=== PATIENT | male | born 1940 | race Caucasian/White ===

== ENCOUNTER 2017-06-13 09:37 | Emergency (ER) | payer MEDICARE, BC ==
--- NOTE | 2017-06-13 10:25 | EDM.PDOC ---
[id number] 4d LEFT ARM IS NUMB AND HEART HURTS Time Seen by Provider: 06/13/17 10:19 Source of Information: Reports: Patient History Limitations: Reports: No Limitations - History of Present Illness INITIAL COMMENTS - FREE TEXT/NARRATIVE: 76-year-old male with known coronary artery disease presents with 2-3 weeks of intermittent mild anterior chest discomfort with left arm numbness and posterior left shoulder discomfort. No shortness of breath, when he woke up this morning the numbness in his arm seemed a little worse so he came in. It now seems better. The chest pain last just a few minutes and is very localized to the left anterior chest. It seems to be better with activity, he mows the lawn and is very active and has no symptoms while active. Onset: Unknown/Unsure Location: Reports: Chest, Lower Extremity, Left, Other (Left posterior shoulder and upper back) Improves with: Reports: Movement Worsens with: Reports: Rest (Seems to be worse in the morning upon arising) Associated Symptoms: Reports: No Other Symptoms Left Chest Pain Score (Numeric/FACES): 5 - Related Data Allergies Allergy/AdvReac Type Severity Reaction Status Date / Time No Known Allergies Allergy Verified 06/13/17 09:57 Home Meds: Home Meds Aspirin 81 mg PO DAILY 10/21/16 [History] Lisinopril 5 mg PO DAILY 10/21/16 [History] Metoprolol Tartrate 25 mg PO BID 10/21/16 [History] Warfarin [Coumadin] 5 mg PO ASDIRECTED 10/21/16 [History] atorvaSTATin [Lipitor] 80 mg PO BEDTIME 10/21/16 [History] Past Medical History HEENT History: Reports: Impaired Vision Cardiovascular History: Reports: Afib, CAD, Stents Musculoskeletal History: Reports: Fracture Oncologic (Cancer) History: Reports: Other (See Below) Other Oncologic History: skin Dermatologic History: Reports: Melanoma - Infectious Disease History Infectious Disease History: Reports: Chicken Pox, Shingles - Past Surgical History Cardiovascular Surgical History: Reports: Carotid Stents, Percutaneous Transluminal Angioplasty Other Cardiovascular Surgeries/Procedures: 2008 GI Surgical History: Reports: Appendectomy Musculoskeletal Surgical History: Reports: Hip Replacement, Knee Replacement Other Musculoskeletal Surgeries/Procedures:: Knee right 2009. hip right 2013 Social & Family History - Family History Family Medical History: Noncontributory - Tobacco Use Smoking Status *Q: Never Smoker - Caffeine Use Caffeine Use: Reports: Coffee - Alcohol Use Days Per Week of Alcohol Use: 0 - Recreational Drug Use Recreational Drug Use: No ED ROS GENERAL - Review of Systems Review Of Systems: See Below Constitutional: Denies: Fever, Chills, Malaise HEENT: Reports: No Symptoms Respiratory: Denies: Shortness of Breath, Cough Cardiovascular: Reports: Chest Pain GI/Abdominal: Denies: Abdominal Pain, Nausea, Vomiting Musculoskeletal: Reports: Shoulder Pain, Back Pain Skin: Reports: Bruising Neurological: Reports: Other (Paresthesias and intermittent numbness in the left arm) ED EXAM, GENERAL - Physical Exam Exam: See Below Exam Limited By: No Limitations General Appearance: Alert, No Apparent Distress Head: Atraumatic Neck: Full Range of Motion Respiratory/Chest: No Respiratory Distress, Lungs Clear Cardiovascular: Irregularly Irregular GI/Abdominal: Non-Tender Extremities: Normal Inspection, Other (Left arm has no reproducible deficits of strength or sensation) Neurological: Alert, Oriented, No Motor/Sensory Deficits Psychiatric: Normal Affect, Normal Mood Skin Exam: Warm, Dry, Other (Patient does have scattered bruises of both arms in various stages of healing) EKG INTERPRETATION Rhythm: A-Fib Rate (Beats/Min): 78 ST-T: Normal Course - Vital Signs Last Recorded V/S: Last Vital Signs Temp 98.1 F 06/13/17 09:45 Pulse 68 06/13/17 10:47 Resp 16 06/13/17 10:47 BP 112/71 06/13/17 10:47 Pulse Ox 93 L 06/13/17 10:47 - Orders/Labs/Meds Orders: Active Orders 24 hr Category Date Time Status EKG Documentation Completion [RC] ASDIRECTED Care 06/13/17 10:26 Active EKG 12 Lead [EK] Routine Ther 06/13/17 10:26 Ordered Labs: Laboratory Tests 06/13/17 06/13/17 Range/Units 10:40 10:40 WBC 7.0 (4.5-11.0) K/uL RBC 4.18 L (4.30-5.90) M/uL Hgb 12.3 (12.0-15.0) g/dL Hct 36.6 L (40.0-54.0) % MCV 88 (80-98) fL MCH 29 (27-31) pg MCHC 34 (32-36) % Plt Count 210 (150-400) K/uL Neut % (Auto) 68 H (36-66) % Lymph % (Auto) 19 L (24-44) % [place] % (Auto) 9 H (2-6) % Eos % (Auto) 4 (2-4) % Baso % (Auto) 0 (0-1) % Sodium 136 L (140-148) mmol/L Potassium 4.2 (3.6-5.2) mmol/L Chloride 101 (100-108) mmol/L Carbon Dioxide 28 (21-32) mmol/L Anion Gap 11.2 (5.0-14.0) mmol/L BUN 21 H (7-18) mg/dL Creatinine 0.9 (0.8-1.3) mg/dL Est Cr Clr Drug Dosing 64.98 mL/min Estimated GFR (MDRD) > 60 (>60) Glucose 88 (74-106) mg/dL Calcium 8.6 D (8.5-10.1) mg/dL Troponin I < 0.017 (0.000-0.056) ng/mL - Re-Assessments/Exams Free Text/Narrative Re-Assessment/Exam: 06/13/17 10:29 An EKG that was done which was reassuring, he is in his chronic atrial fibrillation without any ST changes. A pro time was checked yesterday at 1.9 without changing his warfarin dose, this will not be repeated. A CBC, BMP and troponin and a two-view chest x-ray will be obtained for reassurance however this likely is musculoskeletal with some intermittent nerve irritation or impingement in the left neck and shoulder. 06/13/17 11:19 Chest x-ray and labs are reassuring, troponin was 0. Encouraged the patient to return anytime if worsening or concerns but no activity restrictions at this time. Departure - Departure Time of Disposition: 11:45 Disposition: Home, Self-Care 01 Condition: Good Clinical Impression: Paresthesia of left upper extremity, Chest pain, atypical - Discharge Information Instructions: Nonspecific Chest Pain Referrals: PCP,None [Primary Care Provider] - Forms: ED Department Discharge Care Plan Goals: Continue current medications, activity as tolerated and return anytime if worsening or concerns. - My Orders Last 24 Hours: My Active Orders 06/13/17 10:26 EKG Documentation Completion [RC] ASDIRECTED EKG 12 Lead [EK] Routine - Assessment/Plan Last 24 Hours: My Active Orders 06/13/17 10:26 EKG Documentation Completion [RC] ASDIRECTED EKG 12 Lead [EK] Routine
[2017-06-13 10:48] VITALS: BP 112/71
--- NOTE | 2017-06-13 11:08 | CR ---
Chest 2V HISTORY: Dyspnea. COMPARISON: 10/21/2016. FINDINGS: Moderate stable cardiomegaly. Mild interstitial prominence in the perihilar regions which may represent mild congestive change. No dense infiltrate or effusion seen.
== END 2017-06-13 11:50 | disposition home or self-care (01) ==
LOC: JP.ED 09:37
DX: R07.89 Other chest pain (principal); R20.9 Unspecified disturbances of skin sensation; I48.91 Unspecified atrial fibrillation; I25.10 Atherosclerotic heart disease of native coronary artery without angina pectoris; Z96.649 Presence of unspecified artificial hip joint; Z96.659 Presence of unspecified artificial knee joint; Z98.890 Other specified postprocedural states; Z79.82 Long term (current) use of aspirin; Z79.899 Other long term (current) drug therapy; Z96.651 Presence of right artificial knee joint; Z95.5 Presence of coronary angioplasty implant and graft; Z90.49 Acquired absence of other specified parts of digestive tract
CPT/HCPCS: 36415; 71020; 71020-26; 80048; 84484; 85025; 93005; 93010; 99283; 99284-25

== ENCOUNTER 2018-07-10 20:39 | Emergency (ER) | payer MEDICARE, BC ==
[2018-07-10 21:17] VITALS: BP 128/60
[2018-07-10] MEDS ORDERED: Bacitracin Oint 1 GM U/D Packet TOP ONE (21:20)
[2018-07-10] MEDS ORDERED: Diphtheria,Pertussis(Acell),Tetanus Vaccine 0.5 ML SDV IM ONE (21:20)
--- NOTE | 2018-07-10 21:25 | EDM.PDOC ---
ED HPI GENERAL MEDICAL PROBLEM - General Chief Complaint: Skin Complaint Stated Complaint: CUT ON LEFT ARM Time Seen by Provider: 07/10/18 21:21 Source of Information: Reports: Patient, RN History Limitations: Reports: Other (poor historian) - History of Present Illness INITIAL COMMENTS - FREE TEXT/NARRATIVE: 77 yo male here with a skin tear to his L forearm. Does not know about the timing of his last tetanus. Onset: Today Onset Date: 07/10/18 Onset Time: 20:00 Duration: Minutes:, Constant Location: Reports: Upper Extremity, Left Quality: Reports: Dull Severity: Mild Improves with: Reports: Other (time) Worsens with: Reports: None Context: Reports: Trauma Associated Symptoms: Reports: No Other Symptoms Treatments LATENT PRINT EXAMINER: Reports: Dressing(s) - Related Data Allergies Allergy/AdvReac Type Severity Reaction Status Date / Time No Known Allergies Allergy Verified 07/10/18 21:17 Home Meds: Home Meds Aspirin 81 mg PO DAILY 10/21/16 [History] Lisinopril 5 mg PO DAILY 10/21/16 [History] Metoprolol Tartrate 25 mg PO BID 10/21/16 [History] Warfarin [Coumadin] 5 mg PO ASDIRECTED 10/21/16 [History] atorvaSTATin [Lipitor] 80 mg PO BEDTIME 10/21/16 [History] Past Medical History HEENT History: Reports: Impaired Vision Cardiovascular History: Reports: Afib, CAD, Stents Musculoskeletal History: Reports: Fracture Oncologic (Cancer) History: Reports: Other (See Below) Other Oncologic History: skin Dermatologic History: Reports: Melanoma - Infectious Disease History Infectious Disease History: Reports: Chicken Pox, Shingles - Past Surgical History Cardiovascular Surgical History: Reports: Carotid Stents, Percutaneous Transluminal Angioplasty Other Cardiovascular Surgeries/Procedures: 2009 GI Surgical History: Reports: Appendectomy Musculoskeletal Surgical History: Reports: Hip Replacement, Knee Replacement Other Musculoskeletal Surgeries/Procedures:: Knee right 2009. hip right 2013 Social & Family History - Family History Family Medical History: Noncontributory - Caffeine Use Caffeine Use: Reports: Coffee ED ROS GENERAL - Review of Systems Review Of Systems: See Below Constitutional: Reports: No Symptoms Musculoskeletal: Reports: No Symptoms Skin: Reports: Wound (L forearm) Neurological: Reports: No Symptoms ED EXAM, SKIN/RASH Exam: See Below Exam Limited By: No Limitations General Appearance: Alert, WD/WN, No Apparent Distress Ears: Hearing Loss Neurological: Alert, Oriented, CN II-XII Intact, Normal Cognition, No Motor/ Sensory Deficits, Sensory/Motor Deficit Psychiatric: Normal Mood Skin: Warm, Dry, Normal Color, No Rash, Wound/Incision Location, Skin: Upper Extremity, Left Characteristics: Other (skin tear) Course - Vital Signs Text/Narrative:: Clean and dressed per nursing. Last Recorded V/S: Last Vital Signs Temp 36.4 C 07/10/18 21:15 Pulse 88 07/10/18 21:15 Resp 12 07/10/18 21:15 BP 128/60 07/10/18 21:15 Pulse Ox 98 07/10/18 21:15 - Orders/Labs/Meds Orders: Active Orders 24 hr Category Date Time Status Vaccines to be Administered [RC] PER UNIT ROUTINE Care 07/10/18 21:20 Ordered Bacitracin [Bacitracin Oint 1 GM] Med 07/10/18 21:20 Once 1 dose TOP ONETIME ONE Diphth,Pertuss(Acell),Tet Vac [Adacel] Med 07/10/18 21:20 Once 0.5 ml IM .ONCE ONE Departure - Departure Time of Disposition: 21:30 Disposition: Home, Self-Care 01 Condition: Good Clinical Impression: Skin tear of left forearm without complication Qualifiers: Encounter type: initial encounter Qualified Code(s): S51.812A - Laceration without foreign body of left forearm, initial encounter - Discharge Information *PRESCRIPTION DRUG MONITORING PROGRAM REVIEWED*: Not Applicable *COPY OF PRESCRIPTION DRUG MONITORING REPORT IN PATIENT VEDA: Not Applicable Instructions: Skin Tear Care, [id number] Referrals: Bret Morales MD [Primary Care Provider] - Additional Instructions: Starting tomorrow night clean wound twice daily with soap and water. Dry. Apply antibiotic ointment and a new dressing. Recheck for signs of infection. - My Orders Last 24 Hours: My Active Orders 07/10/18 21:20 Vaccines to be Administered [RC] PER UNIT ROUTINE Bacitracin [Bacitracin Oint 1 GM] 1 dose TOP ONETIME ONE Diphth,Pertuss(Acell),Tet Vac [Adacel] 0.5 ml IM .ONCE ONE - Assessment/Plan Last 24 Hours: My Active Orders 07/10/18 21:20 Vaccines to be Administered [RC] PER UNIT ROUTINE Bacitracin [Bacitracin Oint 1 GM] 1 dose TOP ONETIME ONE Diphth,Pertuss(Acell),Tet Vac [Adacel] 0.5 ml IM .ONCE ONE
== END 2018-07-10 21:35 | disposition home or self-care (01) ==
LOC: JP.ED 20:39
DX: S51.812A Laceration without foreign body of left forearm, initial encounter (principal); Z23 Encounter for immunization; Z79.82 Long term (current) use of aspirin; Z79.01 Long term (current) use of anticoagulants; Z79.899 Other long term (current) drug therapy; W45.8XXA Other foreign body or object entering through skin, initial encounter
CPT/HCPCS: 90471; 90715; 99283-25

== ENCOUNTER 2020-11-21 08:18 | Emergency (ER) | payer MEDICARE ==
[2020-11-21] MEDS ORDERED: Acetaminophen 325 MG Tab PO PRN (09:01)
--- NOTE | 2020-11-21 09:08 | EDM.PDOC ---
ED HPI GENERAL MEDICAL PROBLEM - General Chief Complaint: Gastrointestinal Problem Stated Complaint: NO APPETITE, SOB Time Seen by Provider: 11/21/20 08:54 Source of Information: Reports: Patient, RN Notes Reviewed History Limitations: Reports: No Limitations - History of Present Illness INITIAL COMMENTS - FREE TEXT/NARRATIVE: 80-year-old gentleman presents emergency department today with complaint of nausea poor oral intake for the last 4 days he has had a positive exposure to Covid his is currently hospitalized also on screening he was found to be hypotensive. - Related Data Allergies Allergy/AdvReac Type Severity Reaction Status Date / Time No Known Allergies Allergy Verified 07/22/19 08:58 Home Meds: Home Meds Aspirin 81 mg PO DAILY 10/21/16 [History] Lisinopril 5 mg PO DAILY 10/21/16 [History] Metoprolol Tartrate 25 mg PO BID 10/21/16 [History] atorvaSTATin [Lipitor] 80 mg PO BEDTIME 10/21/16 [History] Apixaban [Eliquis] 5 mg PO DAILY 07/22/19 [History] Nitroglycerin 0.4 mg PO ASDIRECTED PRN 11/21/20 [History] Past Medical History HEENT History: Reports: Impaired Vision Cardiovascular History: Reports: Afib, CAD, Stents Musculoskeletal History: Reports: Fracture Oncologic (Cancer) History: Reports: Other (See Below) Other Oncologic History: skin Dermatologic History: Reports: Melanoma - Infectious Disease History Infectious Disease History: Reports: Chicken Pox, Shingles - Past Surgical History Cardiovascular Surgical History: Reports: Carotid Stents, Percutaneous Transluminal Angioplasty Other Cardiovascular Surgeries/Procedures: 2008 GI Surgical History: Reports: Appendectomy Musculoskeletal Surgical History: Reports: Hip Replacement, Knee Replacement Other Musculoskeletal Surgeries/Procedures:: Knee right 2009. hip right 2013 Social & Family History - Family History Family Medical History: No Pertinent Family History - Tobacco Use Tobacco Use Status *Q: Never Tobacco User - Caffeine Use Caffeine Use: Reports: Coffee ED ROS GENERAL - Review of Systems Review Of Systems: See Below Constitutional: Reports: No Symptoms HEENT: Reports: No Symptoms Respiratory: Reports: No Symptoms Cardiovascular: Reports: Blood Pressure Problem GI/Abdominal: Reports: Nausea : Reports: No Symptoms ED EXAM, GENERAL - Physical Exam Exam: See Below Exam Limited By: No Limitations General Appearance: Alert, WD/WN, No Apparent Distress Respiratory/Chest: No Respiratory Distress, Lungs Clear, Normal Breath Sounds, No Accessory Muscle Use, Chest Non-Tender Cardiovascular: Regular Rate, Rhythm, No Murmur GI/Abdominal: Soft, Non-Tender Course - Vital Signs Last Recorded V/S: Last Vital Signs Temp 98 F 11/21/20 08:37 Pulse 88 11/21/20 08:45 Resp 16 11/21/20 08:45 BP 101/56 L 11/21/20 08:45 Pulse Ox 98 11/21/20 08:45 - Orders/Labs/Meds Orders: Active Orders 24 hr Category Date Time Status Nurse Communication: Isolation [RC] ASDIRECTED Care 11/21/20 09:01 Active Chest 1V Frontal [CR] Stat Exams 11/21/20 09:02 Taken Acetaminophen [TylenoL] Med 11/21/20 09:01 Active 650 mg PO Q4H PRN Isolation [COMM] Stat Oth 11/21/20 09:01 Ordered Medication Orders Acetaminophen (Tylenol) 650 mg PO Q4H PRN PRN Reason: Fever Greater Than 101 Labs: Laboratory Tests 11/21/20 11/21/20 11/21/20 Range/Units 09:20 09:20 09:20 WBC 4.6 (4.5-11.0) K/uL RBC 3.92 L (4.30-5.90) M/uL Hgb 11.2 L (12.0-15.0) g/dL Hct 34.4 L (40.0-54.0) % MCV 88 (80-98) fL MCH 29 (27-31) pg MCHC 33 (32-36) % Plt Count 140 L (150-400) K/uL Neut % (Auto) 68 H (36-66) % Lymph % (Auto) 17 L (24-44) % [place] % (Auto) 14 H (2-6) % Eos % (Auto) 0 L (2-4) % Baso % (Auto) 0 (0-1) % D-Dimer, Quantitative 795.68 H (0.0-500.0) ng/mL Sodium (140-148) mmol/L Potassium (3.6-5.2) mmol/L Chloride (100-108) mmol/L Carbon Dioxide (21-32) mmol/L Anion Gap (5.0-14.0) mmol/L BUN (7-18) mg/dL Creatinine (0.8-1.3) mg/dL Est Cr Clr Drug Dosing mL/min Estimated GFR (MDRD) (>60) Glucose (74-106) mg/dL Lactic Acid (0.4-2.0) mmol/L Calcium (8.5-10.1) mg/dL Ferritin 113 (8-388) ng/ml Total Bilirubin (0.2-1.0) mg/dL Direct Bilirubin (0.0-0.2) mg/dL Indirect Bilirubin AST (15-37) U/L ALT (12-78) U/L Alkaline Phosphatase (46-116) U/L Lactate Dehydrogenase (85-227) U/L C-Reactive Protein (0.0-0.3) mg/dL Total Protein (6.4-8.2) g/dL Albumin (3.4-5.0) g/dL Globulin (2.3-3.5) g/dL Albumin/Globulin Ratio (1.2-2.2) Procalcitonin ng/mL SARS-CoV-2 RNA ([facility]) (NEGATIVE) 11/21/20 11/21/20 11/21/20 Range/Units 09:20 09:20 09:20 WBC (4.5-11.0) K/uL RBC (4.30-5.90) M/uL Hgb (12.0-15.0) g/dL Hct (40.0-54.0) % MCV (80-98) fL MCH (27-31) pg MCHC (32-36) % Plt Count (150-400) K/uL Neut % (Auto) (36-66) % Lymph % (Auto) (24-44) % [place] % (Auto) (2-6) % Eos % (Auto) (2-4) % Baso % (Auto) (0-1) % D-Dimer, Quantitative (0.0-500.0) ng/mL Sodium 135 L (140-148) mmol/L Potassium 4.7 (3.6-5.2) mmol/L Chloride 100 (100-108) mmol/L Carbon Dioxide 29 (21-32) mmol/L Anion Gap 10.7 (5.0-14.0) mmol/L BUN 22 H (7-18) mg/dL Creatinine 1.0 (0.8-1.3) mg/dL Est Cr Clr Drug Dosing 58.90 mL/min Estimated GFR (MDRD) > 60 (>60) Glucose 96 (74-106) mg/dL Lactic Acid 0.9 (0.4-2.0) mmol/L Calcium 8.2 L (8.5-10.1) mg/dL Ferritin (8-388) ng/ml Total Bilirubin 0.5 D (0.2-1.0) mg/dL Direct Bilirubin 0.15 (0.0-0.2) mg/dL Indirect Bilirubin 0.35 AST 21 (15-37) U/L ALT 25 (12-78) U/L Alkaline Phosphatase 75 (46-116) U/L Lactate Dehydrogenase 194 (85-227) U/L C-Reactive Protein 7.58 H (0.0-0.3) mg/dL Total Protein 5.9 L (6.4-8.2) g/dL Albumin 2.7 L (3.4-5.0) g/dL Globulin 3.2 (2.3-3.5) g/dL Albumin/Globulin Ratio 0.8 L (1.2-2.2) Procalcitonin < 0.05 ng/mL SARS-CoV-2 RNA ([facility]) (NEGATIVE) 11/21/20 Range/Units 09:27 WBC (4.5-11.0) K/uL RBC (4.30-5.90) M/uL Hgb (12.0-15.0) g/dL Hct (40.0-54.0) % MCV (80-98) fL MCH (27-31) pg MCHC (32-36) % Plt Count (150-400) K/uL Neut % (Auto) (36-66) % Lymph % (Auto) (24-44) % [place] % (Auto) (2-6) % Eos % (Auto) (2-4) % Baso % (Auto) (0-1) % D-Dimer, Quantitative (0.0-500.0) ng/mL Sodium (140-148) mmol/L Potassium (3.6-5.2) mmol/L Chloride (100-108) mmol/L Carbon Dioxide (21-32) mmol/L Anion Gap (5.0-14.0) mmol/L BUN (7-18) mg/dL Creatinine (0.8-1.3) mg/dL Est Cr Clr Drug Dosing mL/min Estimated GFR (MDRD) (>60) Glucose (74-106) mg/dL Lactic Acid (0.4-2.0) mmol/L Calcium (8.5-10.1) mg/dL Ferritin (8-388) ng/ml Total Bilirubin (0.2-1.0) mg/dL Direct Bilirubin (0.0-0.2) mg/dL Indirect Bilirubin AST (15-37) U/L ALT (12-78) U/L Alkaline Phosphatase (46-116) U/L Lactate Dehydrogenase (85-227) U/L C-Reactive Protein (0.0-0.3) mg/dL Total Protein (6.4-8.2) g/dL Albumin (3.4-5.0) g/dL Globulin (2.3-3.5) g/dL Albumin/Globulin Ratio (1.2-2.2) Procalcitonin ng/mL SARS-CoV-2 RNA ([facility]) Positive H (NEGATIVE) Meds: Medications Generic Name Dose Route Start Last Admin Trade Name Freq PRN Reason Stop Dose Admin Acetaminophen 650 mg 11/21/20 09:01 Tylenol PO Q4H PRN Fever Greater Than 101 Departure - Departure Time of Disposition: 11:09 Disposition: Home, Self-Care 01 Condition: Fair Clinical Impression: COVID-19 - Discharge Information Instructions: COVID-19 Frequently Asked Questions, COVID-19: How to Protect Yourself and Others - [facility] [place] Referrals: Bret Morales MD [Primary Care Provider] - Forms: ED Department Discharge Additional Instructions: An order has been placed for you to receive the monoclonal antibody infusion we will plan for this infusion to be on Monday the outpatient surgery center will call you to schedule the appointment time, call return to the emergency department worsening of symptoms recommend remain quarantined until that time Sepsis Event Note (ED) - Evaluation Sepsis Screening Result: No Definite Risk - Focused Exam Vital Signs: Vital Signs Temp Pulse Resp BP Pulse Ox 11/21/20 08:45 88 16 101/56 L 98 11/21/20 08:37 98 F 86 16 71/50 L 98 11/21/20 08:36 98 F 86 16 71/50 L 98 - My Orders Last 24 Hours: My Active Orders 11/21/20 09:01 Nurse Communication: Isolation [RC] ASDIRECTED Acetaminophen [TylenoL] 650 mg PO Q4H PRN Isolation [COMM] Stat 11/21/20 09:02 Chest 1V Frontal [CR] Stat - Assessment/Plan Last 24 Hours: My Active Orders 11/21/20 09:01 Nurse Communication: Isolation [RC] ASDIRECTED Acetaminophen [TylenoL] 650 mg PO Q4H PRN Isolation [COMM] Stat 11/21/20 09:02 Chest 1V Frontal [CR] Stat Plan: Assessment Acuity = acute Site and laterality = viral syndrome Etiology = COVID-19 Manifestations = none Location of injury = Home Lab values = hemoglobin low 11.2 consistent normochromic anemia, platelets low at 140 D-dimer slightly elevated 795 consistent with inflammatory marker lactic acid normal 0.9 CRP elevated 7.58 LDH normal at 194 Covid test was positive chest x-ray I did review films myself I cannot appreciate any acute process, the official read from radiology is pending Plan Because his O2 saturation was 9798% he did not meet the criteria for hospital admission however he is a candidate for monoclonal antibody in order was placed plan for have this infusion on Monday outpatient will call him to set this up This note was dictated using [employer] voice recognition software please call with any questions on syntax or grammar.
[2020-11-21 11:10] VITALS: BP 116/65; PULSE 85
--- NOTE | 2020-11-23 11:11 | CR ---
CHEST: Portable 11/21/2020 at 9:42 AM CLINICAL HISTORY:Respiratory failure COMPARISON:2017 FINDINGS: The heart is enlarged. Pulmonary vascularity appears normal. There is infiltrate in the left lung. There are no effusions. IMPRESSION: Cardiomegaly Patchy left lung pneumonic infiltrate Follow-up recommended until clear
== END 2020-11-21 11:27 | disposition home or self-care (01) ==
LOC: JP.ED 08:18
DX: U07.1 COVID-19 (principal); I48.91 Unspecified atrial fibrillation; I25.10 Atherosclerotic heart disease of native coronary artery without angina pectoris; Z95.5 Presence of coronary angioplasty implant and graft; Z79.82 Long term (current) use of aspirin; Z79.01 Long term (current) use of anticoagulants; Z79.899 Other long term (current) drug therapy
CPT/HCPCS: 36415; 71045; 80048; 80076; 82728; 83605; 83615; 84145; 85025; 85379; 86140; 99284; U0002